=== PATIENT | female | born 1975 | race Two or more races ===

== ENCOUNTER → 2024-02-25 | Outpatient (CLI) | payer OTHER, SELFPAY ==
[2024-02-25 09:54] LABS: Collection Type, Urine Clean Catch
[2024-02-25 11:02] LABS: Bilirubin,Urine Negative (Negative); Blood,Urine 2+ (Negative); Clarity,Urine Clear (Clear/Hazy); Color,Urine Lt-Yellow (Lt Yel-Yel); Culture Indicated,Urine Not Indicated; Glucose, Urine Negative (Negative); Ketones,Urine Negative (Negative); Leukocyte Esterase,Urine Negative (Negative); Nitrite,Urine Negative (Negative); PH,Urine 6.5 (5.0-7.0); Protein,Urine Negative (Neg - Trace); RBC,Urine 16 /hpf (0-3); Specific Gravity,Urine 1.018 (1.001-1.035); Squamous Epithelial Cell,Urine < 1 /hpf (0-5); Urobilinogen,Urine Negative mg/dL (0.0-1.0); WBC,Urine < 1 /hpf (0-5)
[2024-02-25 11:05] LABS: Basophils % (Auto) 0 % (0-2.5); Eosinophils # (Auto) 0.1 Thou/mm3 (0.0-0.5); Eosinophils % (Auto) 1 % (0-10); Hematocrit 34.4 % (36.0-46.0); Hemoglobin 11.5 g/dL (12.0-16.0); Immature Granulocytes % (Auto) 0 % (0-0); Immature Granulocytes Auto 0.02 Thou/mm3 (0.00-0.00); Lymphocytes # (Auto) 2.8 Thou/mm3 (1.0-4.8); Lymphocytes % (Auto) 34 % (10-50); Mean Corpuscular HGB Conc 33.4 g/dl (31.0-37.0); Mean Corpuscular Hemoglobin 29.9 pg (25.0-35.0); Mean Corpuscular Volume 89 fL (80-100); Monocytes # (Auto) 0.5 Thou/mm3 (0.0-0.8); Monocytes % (Auto) 6 % (0-12); Neutrophils # (Auto) 4.9 Thou/mm3 (1.8-7.7); Neutrophils % (Auto) 59 % (37-80); Nucleated Red Blood Cell % 0 /100 WBC (0); Platelet Count 213 Thou/mm3 (140-440); RDW Standard Deviation 41.4 fL (36.4-46.3); Red Blood Count 3.85 Miln/mm3 (4.00-5.20); White Blood Count 8.4 Thou/mm3 (3.6-11.0)
[2024-02-25 11:08] LABS: Iron 92 mcg/dL (50-170)
[2024-02-25 11:24] LABS: Alanine Aminotransferase 24 U/L (10-49); Albumin, Serum 4.5 gm/dL (3.5-5.0); Albumin/Globulin Ratio 1.7 (1.2-2.2); Alkaline Phosphatase 83 U/L (46-116); Anion Gap 4 (7-16); Aspartate Amino Transferase 24 U/L (0-34); BUN/Creatinine Ratio 13 Ratio (12-20); Bilirubin,Total 0.7 mg/dL (0.3-1.2); Blood Urea Nitrogen 10 mg/dL (9-23); Calcium 9.3 mg/dL (8.3-10.6); Calcium (Corrected) 9.3 mg/dL (8.5-10.1); Carbon Dioxide 25.7 mMol/L (20.0-31.0); Cardiac Risk Estimate 2.8 RATIO (3.7-5.6); Chloride 106 mMol/L (98-107); Cholesterol 198 mg/dL (132-200); Creatinine (Component) 0.8 mg/dL (0.6-1.3); Globulin 2.6 gm/dL (2.3-3.5); Glucose 86 mg/dL (74-106); HDL Cholesterol 72 mg/dL (40-60); LDL Cholesterol,Calculated 111 mg/dL (0-130); Osmolality,Calculated 269 (275-295); Potassium 4.3 mMol/L (3.4-5.1); Sodium 136 mMol/L (136-145); Thyroid Stimulating Hormone 1.43 uIU/mL (0.55-4.78); Total Protein 7.1 gm/dL (5.7-8.2); Triglycerides 77 mg/dL (30-150); eGFR > 60 See Note
[2024-02-25 11:27] LABS: Folate 22.06 ng/mL (>5.38); Vitamin B12 663 pg/mL (211-911); Vitamin D 25 Hydroxy Total 24.7 ng/mL (7.3-40.2)
== END | disposition home or self-care (01) ==
PROVIDERS: PCP Family Medicine; Referring Provider Nurse Practitioner Family; Visit Provider Nurse Practitioner Family
DX: Z00.00 Encounter for general adult medical examination without abnormal findings (principal)
CPT/HCPCS: 36415; 80053; 80061; 81001; 82306; 82607; 82746; 83540; 84443; 85025

== ENCOUNTER → 2024-03-16 | Outpatient (CLI) | payer OTHER, SELFPAY ==
[2024-03-15 17:51] LABS: HCG Qualitative,Urine Negative
--- NOTE | 2024-03-16 14:30 | XR_ITS ---
Examination: CT abdomen and pelvis without contrast. Coronal 3-D reconstructions. Sagittal 2-D reconstructions. Date and time of exam:March 16, 2024 1459 hours INDICATIONS: Hematuria on laboratory examination one month ago CTDI: vol (mGy): 5.65 DLP: (mGycm): 266 Technique: Axial images of the abdomen have been obtained, 3 mm slice thickness Intravenous contrast material has not been administered. Low dose protocols were performed. One or more of the following dose reduction techniques were used; automated exposure control, adjustment of the mA and/or KV according to patient size, use of iterative reconstruction technique. Findings: No focal liver or splenic lesions No gallstones No pancreatic mass No renal or ureteral calculi, no hydronephrosis Aorta normal size No bowel obstruction Normal appendix No bladder mass or bladder calculi No pelvic mass The osseous structures are intact IMPRESSION: No renal or ureteral calculi, no hydronephrosis No bladder mass or bladder calculi
== END | disposition home or self-care (01) ==
LOC: CCTX 14:00
PROVIDERS: PCP Family Medicine; Referring Provider Nurse Practitioner Family; Visit Provider Nurse Practitioner Family
DX: R31.21 Asymptomatic microscopic hematuria (principal); Z32.00 Encounter for pregnancy test, result unknown
CPT/HCPCS: 74176; 81025

== ENCOUNTER 2024-04-16 06:55 | Day surgery (SDC) | payer OTHER, SELFPAY ==
[2024-04-15 13:23] LABS: HCG Qualitative,Urine Negative
[2024-04-15 14:16] VITALS: BMI 24.5
[2024-04-16] VITALS (8 sets, daily range): BP systolic 111–140; BP diastolic 68–90; PULSE 69–90; RESP 17–20; TEMP 36.7–36.8; O2SAT 97–100; BMI 24.3
[2024-04-16] MEDS: DiphenhydrAMINE INJ 50 MG/ML VIAL 25 MG IV (08:02)
[2024-04-16] MEDS: LIDOCAINE JELLY 2% (Urojet) 10 ML TUBE TOP (08:03)
[2024-04-16] MEDS: MIDAZOLAM INJ 1 MG/ML VIAL 2 ML (ASD USE ONLY) 2 MG IV (08:04)
[2024-04-16] MEDS: fentaNYL CIT INJ 50 mCg/ML AMP 2ML (ASD USE ONLY) IV (08:04)
== END 2024-04-16 09:07 | disposition home or self-care (01) ==
PROVIDERS: PCP Nurse Practitioner Family; Referring Provider Surgery; Visit Provider Surgery
PROC: 0DBE8ZX Excision of Large Intestine, Via Natural or Artificial Opening Endoscopic, Diagnostic (ICD-10-PCS; CPT 45380; principal; 2024-04-16 08:00)
DX: Z12.11 Encounter for screening for malignant neoplasm of colon (principal); K64.1 Second degree hemorrhoids
CPT/HCPCS: 45378; 81025; J1200; J2250; J3010

== ENCOUNTER → 2024-06-03 | Outpatient (BNVA) | payer OTHER, SELFPAY | END | disposition home or self-care (01) | PROVIDERS: PCP Family Medicine; Referring Provider Family Medicine; Visit Provider Urology | DX: R31.29 Other microscopic hematuria (principal) | CPT/HCPCS: 81003; 99212; G0463 ==

== ENCOUNTER → 2024-06-07 | Outpatient (CLI) | payer OTHER, SELFPAY ==
[2024-06-07 12:23] LABS: Basophils # (Auto) 0.1 Thou/mm3 (0.0-0.2); Basophils % (Auto) 1 % (0-2.5); Eosinophils % (Auto) 0 % (0-10); Hematocrit 34.5 % (36.0-46.0); Hemoglobin 11.8 g/dL (12.0-16.0); Immature Granulocytes % (Auto) 0 % (0-0); Immature Granulocytes Auto 0.02 Thou/mm3 (0.00-0.00); Lymphocytes # (Auto) 3.1 Thou/mm3 (1.0-4.8); Lymphocytes % (Auto) 34 % (10-50); Mean Corpuscular HGB Conc 34.2 g/dl (31.0-37.0); Mean Corpuscular Volume 88 fL (80-100); Monocytes # (Auto) 0.5 Thou/mm3 (0.0-0.8); Monocytes % (Auto) 5 % (0-12); Neutrophils # (Auto) 5.4 Thou/mm3 (1.8-7.7); Neutrophils % (Auto) 59 % (37-80); Nucleated Red Blood Cell % 0 /100 WBC (0); Platelet Count 251 Thou/mm3 (140-440); RDW Standard Deviation 41.6 fL (36.4-46.3); Red Blood Count 3.93 Miln/mm3 (4.00-5.20); White Blood Count 9.1 Thou/mm3 (3.6-11.0)
[2024-06-07 13:49] LABS: Path Review Blood Smear Sent to Pathologist
[2024-06-07 14:15] LABS: Iron 77 mcg/dL (50-170)
== END | disposition home or self-care (01) ==
LOC: COPL 11:49
PROVIDERS: PCP Nurse Practitioner Family; Referring Provider Nurse Practitioner Family; Visit Provider Nurse Practitioner Family
DX: D50.8 Other iron deficiency anemias (principal)
CPT/HCPCS: 36415; 83540; 85025

== ENCOUNTER 2024-06-17 16:51 | Emergency (ER) | payer OTHER, SELFPAY ==
[2024-06-17 16:57] VITALS: BMI 24.5
--- NOTE | 2024-06-17 17:08 | XR_ITS ---
Examination: CT brain head without contrast. 2-D sagittal coronal reconstructions Date and time of exam:June 14, 2024 1730 hrs. Indications: And pain paresthesias in the back of the neck onset today CTDI: vol (mGy):48.2 DLP: (mGycm):950 Technique: Multiple CT axial sections of the brain have been obtained, 5 mm slice thickness. Contrast has not been administered. 2-D sagittal, coronal reconstructions have been obtained Low dose protocols were performed. One or more of the following dose reduction techniques were used; automated exposure control, adjustment of the mA and/or KV according to patient size, use of iterative reconstruction technique. Findings: No significant ventricular enlargement. Intra-axial or extra-axial hemorrhage density is not seen. No mass effect or midline shift Basal cisterns are not remarkable. Fourth ventricle is midline. Cranial vault intact. Impression: Negative for acute hemorrhage, mass effect or midline shift Advise clinical correlation and follow-up accordingly
--- NOTE | 2024-06-17 17:08 | EKG_ITS ---
[facility] Test Date: 2024-06-17 Pat Name: TOMMY BARONE Department: Room: - Gender: Female Time Study Statistician: : 1975 Requested By: Jakob Hart (RODOLFO) Order Number: [id number] Reading MD: Jakob Hart (IT SUPPORT ANALYST) Measurements Intervals [place] Rate: 100 P: 76 LA: 155 QRS: 23 QRSD: 88 T: 52 QT: 343 QTc: 443 Interpretive Statements SINUS TACHYCARDIA LOW QRS VOLTAGE IN PRECORDIAL LEADS [QRS DEFLECTION < 1.0 mV IN CHEST LEADS] ABNORMAL RHYTHM ECG No previous ECG available for comparison /store/S0/[id number]/ecg/[id number].pdf
--- NOTE | 2024-06-17 17:08 | PD.EDRME ---
Rapid Medical Screening Exam RME Arrival date/time: 06/17/24 16:51 48-year-old female presents emergency department today with some extremity weakness headache and chest pain Chief Complaint: Headache
[2024-06-17 17:09] VITALS: BP 131/70; PULSE 106; RESP 18; TEMP 36.6; O2SAT 100
[2024-06-17 17:41] LABS: Collection Type, Urine Clean Catch
[2024-06-17 17:56] LABS: Basophils # (Auto) 0.1 Thou/mm3 (0.0-0.2); Basophils % (Auto) 1 % (0-2.5); Eosinophils % (Auto) 0 % (0-10); Hematocrit 36.6 % (36.0-46.0); Hemoglobin 12.8 g/dL (12.0-16.0); Immature Granulocytes % (Auto) 0 % (0-0); Immature Granulocytes Auto 0.03 Thou/mm3 (0.00-0.00); Lymphocytes # (Auto) 2.1 Thou/mm3 (1.0-4.8); Lymphocytes % (Auto) 25 % (10-50); Mean Corpuscular Hemoglobin 29.7 pg (25.0-35.0); Mean Corpuscular Volume 85 fL (80-100); Monocytes # (Auto) 0.7 Thou/mm3 (0.0-0.8); Monocytes % (Auto) 8 % (0-12); Neutrophils # (Auto) 5.8 Thou/mm3 (1.8-7.7); Neutrophils % (Auto) 66 % (37-80); Nucleated Red Blood Cell % 0 /100 WBC (0); Platelet Count 294 Thou/mm3 (140-440); RDW Standard Deviation 38.6 fL (36.4-46.3); Red Blood Count 4.31 Miln/mm3 (4.00-5.20); White Blood Count 8.7 Thou/mm3 (3.6-11.0)
[2024-06-17 17:56] LABS: Bilirubin,Urine Negative (Negative); Blood,Urine 1+ (Negative); Clarity,Urine Clear (Clear/Hazy); Color,Urine Colorless (Lt Yel-Yel); Culture Indicated,Urine Not Indicated; Glucose, Urine Negative (Negative); Ketones,Urine Trace (Negative); Leukocyte Esterase,Urine Negative (Negative); Nitrite,Urine Negative (Negative); PH,Urine 6.5 (5.0-7.0); Protein,Urine Negative (Neg - Trace); RBC,Urine < 1 /hpf (0-3); Specific Gravity,Urine 1.004 (1.001-1.035); Squamous Epithelial Cell,Urine < 1 /hpf (0-5); Urobilinogen,Urine Negative mg/dL (0.0-1.0); WBC,Urine < 1 /hpf (0-5)
[2024-06-17 18:13] LABS: HCG Qualitative,Urine Negative
[2024-06-17 18:13] LABS: Alanine Aminotransferase 14 U/L (10-49); Albumin, Serum 4.8 gm/dL (3.5-5.0); Albumin/Globulin Ratio 1.6 (1.2-2.2); Alkaline Phosphatase 71 U/L (46-116); Anion Gap 11 (7-16); Aspartate Amino Transferase 11 U/L (0-34); BUN/Creatinine Ratio 8 Ratio (12-20); Bilirubin,Total 0.5 mg/dL (0.3-1.2); Blood Urea Nitrogen 7 mg/dL (9-23); Calcium 9.7 mg/dL (8.3-10.6); Calcium (Corrected) 9.7 mg/dL (8.5-10.1); Carbon Dioxide 22.7 mMol/L (20.0-31.0); Chloride 103 mMol/L (98-107); Creatinine (Component) 0.9 mg/dL (0.6-1.3); Estimated Creatinine Clearance 64.4 mL/min (>60); Free T4 (Free Thyroxine) 1.73 ng/dL (0.89-1.76); Glucose 110 mg/dL (74-106); Lipase 60 U/L (12-53); Osmolality,Calculated 272 (275-295); Potassium 3.4 mMol/L (3.4-5.1); Sodium 137 mMol/L (136-145); Thyroid Stimulating Hormone 1.56 uIU/mL (0.55-4.78); Total Protein 7.8 gm/dL (5.7-8.2); Troponin I < 0.002 ng/mL (0.0-0.045); eGFR > 60 See Note
[2024-06-17] MEDS: HYDROcodone/APAP 5/325 TABLET 1 TAB PO (18:29)
[2024-06-17] MEDS: ONDANSETRON ODT 4 MG TABRAP PO (19:37)
[2024-06-17] MEDS: ALPRazoLAM 0.25 MG TABLET 0.5 MG PO (19:38)
[2024-06-17 20:08] LABS: D-Dimer < 250 ng/mL (<600)
[2024-06-17 20:13] LABS: B-Type Natriuretic Peptide < 20 pg/mL (0-100)
--- NOTE | 2024-06-17 20:16 | PD.EDHA ---
ED Headache RME/HPI General Chief Complaint: Headache Stated Complaint: Tingling, numbness and neck pain Time Seen by Provider: 06/17/24 18:19 Arrival date/time: 06/17/24 16:51 RME / HPI RME / HPI Narrative: 06/17/24 16:51 48-year-old female presents emergency department today with some extremity weakness headache and chest pain This section includes all my notes and documentations, including HPI, PE, and ED course. Harsha Gary MD HPI: 48-year-old female here to be evaluated with headache and other symptoms just prior to arrival. Including intense fear, pounding and racing heart, sweating, chills, shaking, trouble breathing, chest pain, stomach pain, nausea, numbness and tingling in the hands and feet and face, confusion, hot flashes, and feeling faint. No other complaints. ROS: All negative except as documented in HPI. Physical Exam: General: Alert and oriented. Appears anxious. Eyes: Conjunctivae and lids clear. EOMI. PERRL. ENT: No nasal congestion. Neck: Supple. No carotid bruit. No JVD. Heart: RRR. Lungs: No respiratory distress. Good air movement. No rhonchi, wheezing, rales. Chest: No tenderness. Abdomen: Soft and nontender. Legs: No clubbing, cyanosis, edema. Skin: Warm and dry. Neuro: Alert and oriented X 3. Cranial Nerves II-XII grossly intact. No peripheral motor deficits. I reviewed all diagnostic test results. My interpretation of the EKG is sinus rhythm with no acute ST?T changes. My review of the head CT report is no acute findings. Blood tests and urine tests unremarkable. At this point, diagnoses include anxiety. Treatment here included Zofran and Xanax from me. Significant improvement noted. Recommended more outpatient workup. Based on my best medical judgment, made decision no further evaluation or treatment indicated at this time. Patient understands and agrees to the discharge instructions customized and printed, see below. Discharge instructions from Dr. Gary: 1. After extensive evaluation, there is no life-threatening condition.? Such as stroke or brain tumor or heart attack or pulmonary embolism (blood clots in your lungs) or pneumothorax (collapsed lung). 2. Your symptoms may be due to underlying stress or anxiety or nerves.? This is fairly common. 3. Take Xanax as needed.? Whether this helps or not will be valuable information to your private doctors. 4. See a private doctor on 06/18/2024 for recheck and further care. To make sure there is no serious underlying heart condition, ask to help you get more tests for your heart that cannot be done here in the ER.? Such as Holter Monitor (cardiac monitoring at home from a day to even a month), heart stress test (on treadmill or with medication), echocardiogram (imaging of your heart structures), heart catherization (checking for blockages in your heart arteries), and a referral to see a [employer]. 5. Seek immediate medical care with worsening or with any concerns.?? Harsha Gary MD Related Data Home Medications ?Medication ?Instructions ?Recorded ?Confirmed ferrous sulfate 325 mg (65 mg 325 mg PO QDAY 06/03/24 06/03/24 iron) tablet multivitamin 1 tab PO QDAY 06/03/24 06/03/24 Previous Rx's ?Medication ?Instructions ?Recorded alprazolam 0.5 mg tablet (Xanax) 0.5 mg PO BID PRN anxiety #10 tabs 06/17/24 Allergies Allergy/AdvReac Type Severity Reaction Status Date / Time No Known Allergies Allergy Verified 06/03/24 08:40 Course Quality Measures none Orders Category Date Time Status EKG (ED ONLY) *Do not use* NOW Care 06/17/24 17:[address] head/brain wo con Stat Exams 06/17/24 17:08 Completed EKG (ED Only) Stat Exams 06/17/24 17:08 Draft BNP [B-Type Natriuretic Peptide] Stat Lab 06/17/24 17:29 Completed CBC Stat Lab 06/17/24 17:29 Completed Comprehensive Metabolic Panel Stat Lab 06/17/24 17:29 Completed D-Dimer Stat Lab 06/17/24 17:29 Completed Free T4 (Free Thyroxine) Stat Lab 06/17/24 17:29 Completed HCG Qualitative,Urine Stat Lab 06/17/24 17:30 Completed Lipase Stat Lab 06/17/24 17:29 Completed Magnesium Stat Lab 06/17/24 17:29 Completed TSH [Thyroid Stimulating Hormone] Stat Lab 06/17/24 17:29 Completed Troponin I Stat Lab 06/17/24 17:29 Completed UA, C/S IF [Urinalysis, C/S if Indicated] Stat Lab 06/17/24 17:30 Completed ALPRazoLAM [Xanax] Med 06/17/24 19:30 Discontinued 0.5 mg PO X1 ONE HYDROcodone*/APAP 5/325 [[place] 5/325] Med 06/17/24 18:07 Discontinued 1 tab PO X1 ONE Ondansetron Odt [Zofran Odt] Med 06/17/24 19:30 Discontinued 4 mg PO X1 ONE Vital Signs Vital signs: Vital Signs Temperature 97.8 F 06/17/24 17:09 Pulse Rate 106 H 06/17/24 17:09 Respiratory Rate 18 06/17/24 17:09 Blood Pressure 131/70 H 06/17/24 17:09 Pulse Oximetry (%) 100 06/17/24 17:09 Oxygen Delivery Method Room Air 06/17/24 17:09 Headache Patient data External records reviewed:: [facility] previous records Clinical information provided by:: patient and spouse Social determinants that could affect healthcare access:: none Patient has the following chronic illnesses:: None How is presenting disease/condition affected by chronic disease/condition?: no chronic disease Evaluation data The following diagnostics were reviewed and interpreted by me:: lab results, radiology exam(s) and EKG tracing(s) (My interpretation of the EKG is: Sinus rhythm (100 bpm) with nonspecific ST-T changes. Harsha Gayr MD) Lab and/or radiology exams considered but not ordered:: None Interpretation Summary: Normal diagnostics Medications / Prescriptions Medications or Prescriptions considered but not ordered:: None Medication administrations:: Medication Administration History Discontinued Medications Hydrocodone Bitart/Acetaminophen (Hydrocodone/Apap 5/325 Tablet) 1 tab PO X1 ONE Stop: 06/17/24 18:08 Last Admin: 06/17/24 18:29 Dose: 1 tab Documented By: [place] Alprazolam (Alprazolam 0.25 Mg Tablet) 0.5 mg PO X1 ONE Stop: 06/17/24 19:31 Last Admin: 06/17/24 19:38 Dose: 0.5 mg Documented By: Ondansetron HCl (Ondansetron Odt 4 Mg Tabrap) 4 mg PO X1 ONE; Protocol Stop: 06/17/24 19:31 Last Admin: 06/17/24 19:37 Dose: 4 mg Documented By: Mahendra and Rigoberto from me Consultations Consultation(s) initiated? (list below): No Diagnosis Differential diagnosis headache: migraine, tension headache, subarachnoid hemorrhage and other (HI, anxiety) Most likely diagnosis given after review of the tests above:: Anxiety Admission Indicated Admission indicated?: not indicated Explain why admission is indicated or not indicated:: With significant improvement, there was no indication for admission. Admission Request Was there a request for admission?: No Disposition Plan Disposition Plan: Discharge Discharge Attestation Discharge Attestation: The patient and all family members were given an opportunity to ask questions and understood the discharge instructions. Discharge instructions specifically effects, indications for sooner follow up or return to the emergency department, and the expected course of current diagnosis. Patient condition: Stable Discharge Plan Plan Patient Disposition: HOME (Self Care) Prescriptions/Referrals Prescriptions/Med Rec: New alprazolam [Xanax] 0.5 mg tablet 0.5 mg PO BID PRN (Reason: anxiety) Qty: 10 0RF No Action multivitamin Tablet 1 tab PO QDAY ferrous sulfate 325 mg (65 mg iron) tablet 325 mg PO QDAY Referrals: Brenna Ly NP [Primary Care Provider] - In 1 week Problem List Clinical Impression: Headache, Chest pain Patient/Caregiver Discharge Instructions Discharge Activity: activity as tolerated Education Materials: ED Anxiety Reaction, ED Panic Attack Additional Instructions: Discharge instructions from Dr. Gary: 1. After extensive evaluation, there is no life-threatening condition.? Such as stroke or brain tumor or heart attack or pulmonary embolism (blood clots in your lungs) or pneumothorax (collapsed lung). 2. Your symptoms may be due to underlying stress or anxiety or nerves.? This is fairly common. 3. Take Xanax as needed.? Whether this helps or not will be valuable information to your private doctors. 4. See a private doctor on 06/18/2024 for recheck and further care. To make sure there is no serious underlying heart condition, ask to help you get more tests for your heart that cannot be done here in the ER.? Such as Holter Monitor (cardiac monitoring at home from a day to even a month), heart stress test (on treadmill or with medication), echocardiogram (imaging of your heart structures), heart catherization (checking for blockages in your heart arteries), and a referral to see a [employer]. 5. Seek immediate medical care with worsening or with any concerns.?? Print Language: Danish Stand Alone Forms: [employer] Award Info., Work/School Release, Patient Portal Info Letter
[2024-06-17 20:25] VITALS: RESP 16
== END 2024-06-17 20:25 | disposition home or self-care (01) ==
PROVIDERS: Nurse Practitioner Primary Care; Emergency Provider Emergency Medicine; PCP Nurse Practitioner Family
DX: R51.9 Headache, unspecified (principal); R07.9 Chest pain, unspecified; R20.2 Paresthesia of skin; R00.0 Tachycardia, unspecified
CPT/HCPCS: 36415; 70450; 80053; 81001; 81025; 83690; 83735; 83880; 84439; 84443; 84484; 85025; 85379; 93005; 99284; Q0162; A9270

== ENCOUNTER → 2024-06-21 | Outpatient (CLI) | payer OTHER, SELFPAY ==
--- NOTE | 2024-06-21 15:41 | XR_ITS ---
Examination: Breast ultrasound complete, bilateral Exam date and time: July 06, 2024 at 1410 hrs. Indications: Bilateral breast pain 2 months Technique: Real-time grayscale ultrasonographic imaging bilateral breasts, including all 4 quadrants as well as nipple retroareolar and axillary regions. Findings: Multiple bilateral benign breast cysts Left breast 3:00 nodule 8 x 10 mm circumscribed Impression: BI-RADS Category 3: Probably benign findings Recommend 1 additional 6 month left breast sonogram follow-up to document stability of 11:00 nodule left breast described above
== END | disposition home or self-care (01) ==
LOC: CDIM 15:25
PROVIDERS: PCP Family Medicine; Referring Provider Nurse Practitioner Family; Visit Provider Nurse Practitioner Family
DX: N63.22 Unspecified lump in the left breast, upper inner quadrant (principal)
CPT/HCPCS: 76641

== ENCOUNTER → 2024-06-24 | Outpatient (CLI) | payer OTHER, SELFPAY ==
[2024-06-24 14:56] LABS: Amylase 80 U/L (30-118); Lipase 56 U/L (12-53)
== END | disposition home or self-care (01) ==
LOC: COPL 08:50
PROVIDERS: PCP Nurse Practitioner Family; Referring Provider Nurse Practitioner Family; Visit Provider Nurse Practitioner Family
DX: R74.8 Abnormal levels of other serum enzymes (principal)
CPT/HCPCS: 36415; 82150; 83690

== ENCOUNTER → 2024-06-25 | Outpatient (BNVA) | payer OTHER, SELFPAY | END | disposition home or self-care (01) | PROVIDERS: PCP Family Medicine; Referring Provider Family Medicine; Visit Provider Urology | DX: D41.4 Neoplasm of uncertain behavior of bladder (principal) | CPT/HCPCS: 52214; 81003; 96372; A4217; A4649; C1894; J1580; A9270 ==

== ENCOUNTER → 2024-07-01 | Outpatient (CLI) | payer OTHER, SELFPAY ==
--- NOTE | 2024-07-01 11:45 | XR_ITS ---
Examination: Screening digital mammography, bilateral Computer aided detection 3-D breast Tomosynthesis, bilateral Date and time of exam: July 01, 2024 1130 hours Compared to mammograms dating to June 02, 2020 Indication: Screening Technique: Nonmagnified MLO, CC views of the breasts to been obtained, reconstructed from 3-D Tomosynthesis images. R2 computer aided detection program utilized for evaluation of suspicious masses and/or abnormal calcifications. 3-D Tomosynthesis images obtained. Findings: The breasts are extremely dense, which limits the sensitivity of mammography Skin lesion lower inner right breast Scar formation upper right breast and retroareolar region left breast Bilateral surgical clips No definite suspicious masses Impression: BI-RADS category II: Benign Findings. Recommend 1 year follow-up mammogram. Please see the left breast sonogram report June 21, 2024 requiring six-month follow-up left breast sonogram
== END | disposition home or self-care (01) ==
LOC: CDIM 11:13
PROVIDERS: Referring Provider Nurse Practitioner Family; Visit Provider Nurse Practitioner Family
DX: Z12.31 Encounter for screening mammogram for malignant neoplasm of breast (principal); R92.323 Mammographic fibroglandular density, bilateral breasts; R92.1 Mammographic calcification found on diagnostic imaging of breast
CPT/HCPCS: 77063; 77067

== ENCOUNTER 2024-07-14 05:18 | Emergency (ER) | payer OTHER, SELFPAY ==
[2024-07-14 05:19] VITALS: BMI 22.3
[2024-07-14 05:26] VITALS: BP 120/82; PULSE 77; RESP 18; TEMP 36.7; O2SAT 98
--- NOTE | 2024-07-14 05:37 | EDRME_ITS ---
Rapid Medical Screening Exam [facility] Arrival date/time: 07/14/24 05:18 48F with history of anxiety (patient has journal of meds) presents to ED with 5 days of insomnia and reduced appetite. Xanax and Nyquil have not been working. Chief Complaint: General Adult/Misc Complain Vital signs: Vital Signs Temperature 98.0 F 07/14/24 05:26 Pulse Rate 77 07/14/24 05:26 Respiratory Rate 18 07/14/24 05:26 Blood Pressure 120/82 07/14/24 05:26 Pulse Oximetry (%) 98 07/14/24 05:26 Oxygen Delivery Method Room Air 07/14/24 05:26
[2024-07-14 06:00] LABS: Collection Type, Urine Clean Catch
[2024-07-14 06:05] LABS: Basophils % (Auto) 0 % (0-2.5); Eosinophils % (Auto) 0 % (0-10); Hematocrit 36.5 % (36.0-46.0); Hemoglobin 13.1 g/dL (12.0-16.0); Immature Granulocytes % (Auto) 0 % (0-0); Immature Granulocytes Auto 0.02 Thou/mm3 (0.00-0.00); Lymphocytes # (Auto) 2.8 Thou/mm3 (1.0-4.8); Lymphocytes % (Auto) 31 % (10-50); Mean Corpuscular HGB Conc 35.9 g/dl (31.0-37.0); Mean Corpuscular Hemoglobin 30.2 pg (25.0-35.0); Mean Corpuscular Volume 84 fL (80-100); Monocytes # (Auto) 0.5 Thou/mm3 (0.0-0.8); Monocytes % (Auto) 6 % (0-12); Neutrophils # (Auto) 5.8 Thou/mm3 (1.8-7.7); Neutrophils % (Auto) 63 % (37-80); Nucleated Red Blood Cell % 0 /100 WBC (0); Platelet Count 275 Thou/mm3 (140-440); Red Blood Count 4.34 Miln/mm3 (4.00-5.20); White Blood Count 9.2 Thou/mm3 (3.6-11.0)
[2024-07-14 06:08] LABS: Bilirubin,Urine Negative (Negative); Blood,Urine 1+ (Negative); Clarity,Urine Clear (Clear/Hazy); Color,Urine Colorless (Lt Yel-Yel); Culture Indicated,Urine Not Indicated; Glucose, Urine Negative (Negative); Ketones,Urine Trace (Negative); Leukocyte Esterase,Urine Negative (Negative); Nitrite,Urine Negative (Negative); Protein,Urine Negative (Neg - Trace); RBC,Urine 1 /hpf (0-3); Specific Gravity,Urine 1.007 (1.001-1.035); Squamous Epithelial Cell,Urine < 1 /hpf (0-5); Urobilinogen,Urine Negative mg/dL (0.0-1.0); WBC,Urine < 1 /hpf (0-5)
[2024-07-14 06:33] LABS: HCG Qualitative,Urine Negative
[2024-07-14 07:37] LABS: Amphetamine/Methamp Scrn,U Negative (Negative); Barbiturate Screen,Urine Negative (Negative); Benzodiazepines Screen,Urine Negative (Negative); Benzoylecgonine Screen, Ur Negative (Negative); Fentanyl Screen,Urine Negative (Negative); Opiate Screen,Urine Negative (Negative); THC Screen,Urine Negative (Negative)
[2024-07-14 07:51] LABS: Alanine Aminotransferase 8 U/L (10-49); Albumin, Serum 4.6 gm/dL (3.5-5.0); Albumin/Globulin Ratio 1.7 (1.2-2.2); Alkaline Phosphatase 54 U/L (46-116); Anion Gap 10 (7-16); Aspartate Amino Transferase 15 U/L (0-34); BUN/Creatinine Ratio 8 Ratio (12-20); Bilirubin,Total 0.6 mg/dL (0.3-1.2); Blood Urea Nitrogen 6 mg/dL (9-23); Calcium 9.7 mg/dL (8.3-10.6); Calcium (Corrected) 9.7 mg/dL (8.5-10.1); Carbon Dioxide 23.9 mMol/L (20.0-31.0); Chloride 104 mMol/L (98-107); Creatinine (Component) 0.8 mg/dL (0.6-1.3); Estimated Creatinine Clearance 66.3 mL/min (>60); Globulin 2.7 gm/dL (2.3-3.5); Glucose 97 mg/dL (74-106); Osmolality,Calculated 273 (275-295); Potassium 3.6 mMol/L (3.4-5.1); Sodium 138 mMol/L (136-145); Total Protein 7.3 gm/dL (5.7-8.2); eGFR > 60 See Note
[2024-07-14 08:14] VITALS: BP 125/75; PULSE 77; RESP 16; TEMP 37; O2SAT 97
--- NOTE | 2024-07-14 09:11 | PD.EDADULT ---
ED General RME/HPI General Chief complaint: General Adult/Misc Complain Stated complaint: HAS NOT SLEPT IN 5 DAYS Time Seen by Provider: 07/14/24 09:00 Arrival date/time: 07/14/24 05:18 RME / HPI RME / HPI narrative: 07/14/24 05:18 48F with history of anxiety (patient has journal of meds) presents to ED with 5 days of insomnia and reduced appetite. Xanax and Nyquil have not been working. DR. WILKS MAIN ED EVALUATION 48 y/o female with Hx of anxiety disorder presents to ED with very supportive c/o not sleeping x 5 days. She is and is a mother of two. Patient works an administrative/clerical job and believes it may be a contributor to her stress, but also states that she is not completely sure as to why she is feeling the way she does. Patient's is also concerned that it may be something more serious other than stress. She is currently pending appointment of biopsy of the left breast with surgeon and has not yet had US performed. Patient is currently off of work until 07/30/2024 and will F/U with PCP on 08/03/2024. Patient reports being seen in ED approximately 1 month ago due to anxiety. She reports having an appointment with PCP this morning, but missed it to come to ED. Patient is currently being treated with Buspirone and is concerned about current medication regimen. Husbands states that it was suggested patient be admitted to [facility]' in-patient facility, but was told patient needed to present to ED first. Patient also reports she tries to go on walks to improve symptoms. No modifying factors expressed. No other concerns or complaints expressed at this time. Related Data Home Medications ?Medication ?Instructions ?Recorded ?Confirmed ferrous sulfate 325 mg (65 mg 325 mg PO QDAY 06/03/24 06/25/24 iron) tablet multivitamin 1 tab PO QDAY 06/03/24 06/25/24 Previous Rx's ?Medication ?Instructions ?Recorded alprazolam 0.5 mg tablet (Xanax) 0.5 mg PO BID PRN anxiety #10 tabs 06/17/24 Allergies Allergy/AdvReac Type Severity Reaction Status Date / Time No Known Allergies Allergy Verified 06/25/24 08:34 Review of Systems Review of Systems Systems Reviewed: All systems reviewed, normal except as documented Narrative Review of Systems: Gen: No fever, no chills, no weight loss, + unable to sleep EYES: No discharge, no visual changes, no pain HEENT: No ear pain, no congestion, no sore throat PULM: No shortness of breath, no cough, no congestion CV: No chest pain, no dyspnea on exertion, no palpitations GI: No nausea, no vomiting, no diarrhea, no pain, no constipation : No frequency, no urgency,? no dysuria Musc/skel: No joint pain, no back pain Skin: No rash? Psyc: No hallucinations, depression affected mood Heme/Lymph: No easy bleeding or bruising tendencies Neuro: No weakness, no headache Past Medical History Past Medical History REPRODUCTIVE: Positive Previous Pregnancies (X2) HEMATOLOGIC: Positive Blood Disorders and Anemia PSYCHO/SOCIAL: Positive Anxiety (NO MEDS) OTHER HISTORY: Positive Chicken Pox Family History FAMILY HISTORY: Positive Family Cancer (OVARIAN DYSGERMINOMAS/ MOTHER) Surgical History SURGICAL: Positive Section (X1) Social History SMOKING STATUS: Never smoker ED Exam Narrative Physical exam: GEN. APPEARANCE: The patient is alert awake oriented X-3,, lying down comfortably, does not look ill/toxic.? Patient has poor eye contact.? Patient is cooperative. Soft spoken. Depression affected movement. VITALS:? All vitals were reviewed. HEENT: Normocephalic, atraumatic.? Pupils are equal and reactive.? Oral mucosa is moist. Patent Nares NECK: Supple, nontender, no thyromegaly, no meningismus, no JVD, no step offs CHEST: Symmetrical, atraumatic, and with equal expansion , Nontender on palpation no deformity and no crepitus. CARDIOVASCULAR: Heart regular rhythm no murmur or gallop rub or extra beats. LUNGS: Clear to auscultation bilaterally with symmetrical chest rise.? No laboring tachypnea or wheezing.? No intercostal subcostal retraction.? No rales and no rhonchi. ABDOMEN: Soft, flat, nontender to palpation, no guarding or rebound tenderness.? There are no abnormal masses palpated.? Active and normal bowel sounds. EXTREMITIES: Nontender.? No edema.? No cyanosis.? Patient is able to move all 4 extremities well, with full ROM and good CSM. SKIN: Warm and dry, no jaundice or rashes noted. Course Quality Measures none Orders Category Date Time Status CBC Stat Lab 07/14/24 05:50 Completed CMP [Comprehensive Metabolic Panel] Stat Lab 07/14/24 05:50 Completed Drug Screen,Urine Stat Lab 07/14/24 05:45 Completed HCG Qualitative,Urine Stat Lab 07/14/24 05:45 Completed Urinalysis, C/S if Indicated Stat Lab 07/14/24 05:45 Completed LORazepam [Ativan] Med 07/14/24 09:36 Discontinued 1 mg PO X1 ONE Vital Signs Vital signs: Vital Signs Temperature 98.0 F 07/14/24 05:26 Pulse Rate 77 07/14/24 05:26 Respiratory Rate 18 07/14/24 05:26 Blood Pressure 120/82 07/14/24 05:26 Pulse Oximetry (%) 98 07/14/24 05:26 Oxygen Delivery Method Room Air 07/14/24 05:26 [facility] Patient data External records reviewed:: [facility] previous records (Reviewed prior ED visit documentation by Dr. Gary on 06/17/2024. Patient discharged with chest pain.) Clinical information provided by:: patient and spouse () Social determinants that could affect healthcare access:: mental health Patient has the following chronic illnesses:: Anxiety disorder How is presenting disease/condition affected by chronic disease/condition?: exacerbated by Evaluation data The following diagnostics were reviewed and interpreted by me:: lab results Lab and/or radiology exams considered but not ordered:: None Interpretation Summary: Within normal limits. Medications Medications considered but not ordered:: None Medication administrations:: Medication Administration History Discontinued Medications Lorazepam (Lorazepam 0.5 Mg Tablet) 1 mg PO X1 ONE Stop: 07/14/24 09:37 Last Admin: 07/14/24 09:43 Dose: 1 mg Documented By: DB See above if any. Consultations Consultation(s) initiated? (list below): No Diagnosis Differential Diagnosis ED Complaint MDM: Depression vs Anxiety disorder vs Metabolic Disorder vs Hormonal issues Most likely diagnosis given after review of the tests above:: Insomnia, Depression, Anxiety disorder Admission Indicated Admission indicated?: not indicated Explain why admission is indicated or not indicated:: Does not meet admission criteria. Admission Request Was there a request for admission?: No Disposition Plan Disposition Plan: Discharge Discharge Attestation Discharge Attestation: The patient and all family members were given an opportunity to ask questions and understood the discharge instructions. Discharge instructions specifically effects, indications for sooner follow up or return to the emergency department, and the expected course of current diagnosis. Patient condition: Stable Medical Decision Making MDM Narrative MDM Narrative: Rabia Penn, am scribing for and in the presence of Dr. Walker Wilks. 48 y/o female with Hx of anxiety disorder presents to ED with very supportive c/o not sleeping x 5 days. Physical exam findings show a soft-spoken patient with poor eye contact, with depression affected movement, but is alert and oriented. Labs have been reviewed and are unremarkable. Differential diagnosis includes but is not limited to: Depression vs metabolic disorder vs hormonal issues vs anxiety disorder. Based on exam findings, labs results, and patient's SxS, the diagnosis at this time is consistent with anxiety disorder, insomnia, and depression. Patient was to stay off of work until 07/30/24, but is advised to extend time off work until 08/04/24 in order to see PCP before returning to work. Patient is advised to increase Buspirone dose to 3 times per day. Advised to follow-up with PCP for referral to Psychiatrist. Differential Diagnosis Differential Diagnosis: Depression vs Anxiety disorder vs Metabolic Disorder vs Hormonal issues Lab Data 07/14/24 05:50 07/14/24 05:50 Labs: Lab Results 07/14/24 07/14/24 Range/Units 05:45 05:50 WBC 9.2 (3.6-11.0) Thou/mm3 RBC 4.34 (4.00-5.20) Miln/mm3 Hgb 13.1 (12.0-16.0) g/dL Hct 36.5 (36.0-46.0) % MCV 84 (80-100) fL MCH 30.2 (25.0-35.0) pg MCHC 35.9 (31.0-37.0) g/dl RDW Std Deviation 38.0 (36.4-46.3) fL Plt Count 275 (140-440) Thou/mm3 Neut % (Auto) 63 (37-80) % Lymph % (Auto) 31 (10-50) % [place] % (Auto) 6 (0-12) % Eos % (Auto) 0 (0-10) % Baso % (Auto) 0 (0-2.5) % Neut # (Auto) 5.8 (1.8-7.7) Thou/mm3 Lymph # (Auto) 2.8 (1.0-4.8) Thou/mm3 [place] # (Auto) 0.5 (0.0-0.8) Thou/mm3 Eos # (Auto) 0.0 (0.0-0.5) Thou/mm3 Baso # (Auto) 0.0 (0.0-0.2) Thou/mm3 Immature Gran # (Auto) 0.02 H (0.00-0.00) Thou/mm3 Absolute Nucleated RBC 0.00 (0.00-0.00) Thou/mm3 Immature Gran % 0 (0-0) % Nucleated RBC % 0 (0) /100 WBC Sodium 138 (136-145) mMol/L Potassium 3.6 (3.4-5.1) mMol/L Chloride 104 (98-107) mMol/L Carbon Dioxide 23.9 (20.0-31.0) mMol/L Anion Gap 10 (7-16) BUN 6 L (9-23) mg/dL Creatinine 0.8 (0.6-1.3) mg/dL Estim Creat Clear Calc 66.3 (>60) mL/min eGFR > 60 (60 - ) See Note BUN/Creatinine Ratio 8 L (12-20) Ratio Glucose 97 (74-106) mg/dL Calculated Osmolality 273 L (275-295) Calcium 9.7 (8.3-10.6) mg/dL Corrected Calcium 9.7 (8.5-10.1) mg/dL Total Bilirubin 0.6 (0.3-1.2) mg/dL AST 15 (0-34) U/L ALT 8 L (10-49) U/L Alkaline Phosphatase 54 (46-116) U/L Total Protein 7.3 (5.7-8.2) gm/dL Albumin 4.6 (3.5-5.0) gm/dL Globulin 2.7 (2.3-3.5) gm/dL Albumin/Globulin Ratio 1.7 (1.2-2.2) Ur Collection Type Clean Catch Urine Color Colorless A (Lt Yel-Yel) Urine Clarity Clear (Clear/Hazy) Urine pH 8.0 H (5.0-7.0) Ur Specific [place] 1.007 (1.001-1.035) Urine Protein Negative (Neg - Trace) Urine Glucose (UA) Negative (Negative) Urine Ketones Trace (Negative) Urine Blood 1+ A (Negative) Urine Nitrite Negative (Negative) Urine Bilirubin Negative (Negative) Urine Urobilinogen (Auto) Negative (0.0-1.0) mg/dL Ur Leukocyte Esterase Negative (Negative) Urine RBC 1 (0-3) /hpf Urine WBC < 1 (0-5) /hpf Ur Squamous Epith Cells < 1 (0-5) /hpf Urine Bacteria None (None) Ur Culture Indicated? Not Indicated Urine HCG, Qual Negative Urine Opiates Screen Negative (Negative) Urine Fentanyl Screen Negative (Negative) Ur Barbiturates Screen Negative (Negative) U Amphetamin/Meth Scrn Negative (Negative) U Benzodiazepines Scrn Negative (Negative) U Cocaine Metab Screen Negative (Negative) U Marijuana (THC) Screen Negative (Negative) Discharge Plan Plan Patient Disposition: HOME (Self Care) Disposition Comment: Patient is advised to increase Buspirone dose to 3 times per day. Prescriptions/Referrals Prescriptions/Med Rec: No Action multivitamin Tablet 1 tab PO QDAY ferrous sulfate 325 mg (65 mg iron) tablet 325 mg PO QDAY alprazolam [Xanax] 0.5 mg tablet 0.5 mg PO BID PRN (Reason: anxiety) Qty: 10 0RF Referrals: Brenna Ly NP [Primary Care Provider] - In 1 week Problem List Clinical Impression: Anxiety disorder, Depression, Insomnia Patient/Caregiver Discharge Instructions Education Materials: ED Depression, ED Insomnia Additional Instructions: Patient is advised to increase Buspirone dose to 3 times per day. Follow-up with primary care physician as needed and return for new or worsening symptoms. Print Language: [place] Stand Alone Forms: [employer] Info., Patient Portal Info Letter
[2024-07-14] MEDS: LORazepam 0.5 MG TABLET 1 MG PO (09:43)
[2024-07-14 10:03] VITALS: BP 113/75; PULSE 67; RESP 23; TEMP 36.7; O2SAT 100
[2024-07-14 12:05] VITALS: BP 110/68; PULSE 71; RESP 17; TEMP 36.7; O2SAT 98
== END 2024-07-14 12:24 | disposition home or self-care (01) ==
PROVIDERS: Physician Assistant; Emergency Provider Family Medicine; PCP Nurse Practitioner Family
DX: G47.00 Insomnia, unspecified (principal); F41.9 Anxiety disorder, unspecified; F32.A Depression, unspecified
CPT/HCPCS: 36415; 80053; 80307; 81001; 81025; 85025; 99283; A9270

== ENCOUNTER → 2024-08-02 | Outpatient (CLI) | payer OTHER, SELFPAY ==
[2024-08-02 12:11] LABS: Lipase 60 U/L (12-53)
== END | disposition home or self-care (01) ==
LOC: COPL 09:41
PROVIDERS: PCP Family Medicine; Referring Provider Nurse Practitioner Family; Visit Provider Nurse Practitioner Family
DX: R74.8 Abnormal levels of other serum enzymes (principal)
CPT/HCPCS: 36415; 83690

== ENCOUNTER → 2024-10-13 | Outpatient (CLI) | payer OTHER, SELFPAY ==
[2024-10-11 12:15] LABS: HCG Qualitative,Urine Negative
--- NOTE | 2024-10-13 | XR_ITS ---
Examination: CT abdomen with intravenous contrast CT pelvis with intravenous contrast 2-D coronal reconstructions 2-D sagittal reconstructions Date and time of exam:October 13, 2024 0917 hours Comparison March 16, 2024 INDICATIONS: Generalized abdominal pain beginning 2 weeks ago with 20 pound weight loss over the last month. CTDI: vol (mGy) 5.09 DLP: (mGycm) 234 Technique: Multiple axial sections of the abdomen and pelvis have been obtained. 64 slice high-resolution scanner used. 3 mm axial sections have been obtained, post intravenous injection 60 cc [id number] 2-D sagittal, coronal reconstructions obtained. Low dose protocols were performed. One or more of the following dose reduction techniques were used; automated exposure control, adjustment of the mA and/or KV according to patient size, use of iterative reconstruction technique. Findings: No focal liver or splenic lesions No gallstones No pancreatic or adrenal mass No renal or ureteral calculi, no hydronephrosis Aorta normal size No bowel obstruction No pericecal inflammatory change, normal appendix Intact urinary bladder Retroverted uterus No adnexal mass The osseous structures are intact IMPRESSION: No abdominal or pelvic mass No acute process in the abdomen or pelvis Consider hepatobiliary sonography follow-up
== END | disposition home or self-care (01) ==
PROVIDERS: PCP Nurse Practitioner Family; Referring Provider Specialist; Visit Provider Specialist
DX: R11.0 Nausea (principal); R14.0 Abdominal distension (gaseous); R10.32 Left lower quadrant pain; Z32.00 Encounter for pregnancy test, result unknown
CPT/HCPCS: 74177; 81025; A4649; Q9963; Q9967